=== PATIENT | male | born 1955 ===

== ENCOUNTER 2023-08-02 06:33 | Day surgery (SDC) | payer OTHER ==
[2023-07-26 13:43] LABS: PH,URINE 5.5 (5.0-8.0); URINE APPEARANCE Clear; URINE BILIRRUBIN Negative (NEGATIVE); URINE BLOOD Moderate; URINE COLOR Yellow; URINE GLUCOSE Negative (NEGATIVE); URINE LEUKOCYTE Negative; URINE NITRATE Negative; URINE PROTEIN Negative (NEGATIVE)
[2023-07-26 13:47] LABS: URINE BACTERIA 3.7 uL (0.0-1933); URINE EPITHELIAL CELLS 0.3 uL (0.0-38.8); URINE RBC 52.3 uL (0.0-20.8); URINE WBC 0.6 uL (0.0-23.2)
[2023-07-26 13:52] LABS: HEMATOCRIT 37.3 % (39.0-48.0); HEMOGLOBIN 12.8 g/dL (13-16.00); MEAN CELL VOLUME 89.9 fL (80.0-100.00); MEAN CORPUSCULAR HEMOGLOBIN 30.8 pg (27.00-32.0); MEAN CORPUSCULAR HGB CONC 34.3 g/dl (32.0-36.0); PLATELET COUNT 203 K/uL (150-450); RED BLOOD COUNT 4.15 M/uL (4.00-6.00); RED CELL DISTRIBUTION WIDTH 13.2 % (11.5-14.5)
[2023-07-26 14:10] LABS: INR 0.99; PARTIAL THROMBOPLASTIN TIME 25.7 SECONDS (22.0-34.0); PROTHROMBIN TIME 10.4 SECONDS (9.0-11.5)
[2023-07-26 14:14] LABS: ALBUMIN 3.9 gm/dL (3.4-5.0); CALCIUM 9.2 mg/dL (8.5-10.1); CREATININE SERUM 1.17 mg/dL (0.70-1.30); GFR 62.18; PHOSPHOROUS 3.1 mg/dL (2.5-4.9)
[2023-07-26 14:15] LABS: POTASSIUM 5.45 mEq/L (3.5-5.1)
[~2023-08-02 06:33] MED LIST: COZAAR100 MG PO; GLUMETZA500 MG PO; LIPITOR20 MG PO
[2023-08-02] MEDS ORDERED: CEFAZOLIN SODIUM 1,000 MG in 0.9 % SODIUM CHLORIDE 50 ML IV ONE (14:30)
[2023-08-02] MEDS ORDERED: POVIDONE-IODINE 118 ML BOTT TOP ONE (14:45)
[2023-08-02] MEDS ORDERED: LIDOCAINE HCL 1%/EPINEPHRINE 20ML VIAL IJ ONE (14:45)
[2023-08-02] MEDS ORDERED: CIPROFLOXACIN HCL 0.175 MG/DR DROPS OTIC ONE (14:45)
[2023-08-02] MEDS ORDERED: EPINEPHRINE HCL/PF 1 MG/ML AMPUL IR ONE (14:45)
[2023-08-02] MEDS ORDERED: BACITRACIN 28.35 GM OINT.TUBE TOP ONE (14:45)
[2023-08-02] MEDS ORDERED: DEXAMETHASONE SODIUM PHOSP/PF 10 MG/ML VIAL IV ONE (16:00)
[2023-08-02] MEDS ORDERED: ANTIVERT25 M2 PO (16:55)
[2023-08-02] MEDS ORDERED: CEPHALEXIN500 MG PO (16:56)
[2023-08-02] MEDS ORDERED: CIPROFLOXACIN2.5 ML OTIC (16:56)
== END 2023-08-02 18:30 | disposition home or self-care (01) ==
LOC: CIR.AMB 06:33
PROVIDERS: ATTEND Otolaryngology Otology & Neurotology
DX: H71.22 Cholesteatoma of mastoid, left ear (principal); H72.822 Total perforations of tympanic membrane, left ear; I10 Essential (primary) hypertension; E10.9 Type 1 diabetes mellitus without complications; K29.70 Gastritis, unspecified, without bleeding